=== PATIENT | female | born 1965 | race Two or more races ===

== ENCOUNTER → 2025-05-30 | Outpatient (CLI) | payer MEDICAID, SELFPAY ==
--- NOTE | 2025-05-30 14:45 | XR_ITS ---
Examination: Screening digital mammography, bilateral Computer aided detection 3-D breast Tomosynthesis, bilateral Date and time of exam: May 30, 2025, 1440 hours, comparison March 07, 2015 Indication: Screening Technique: Nonmagnified MLO, CC views of the breasts to been obtained, reconstructed from 3-D Tomosynthesis images. R2 computer aided detection program utilized for evaluation of suspicious masses and/or abnormal calcifications. 3-D Tomosynthesis images obtained. Findings: The breasts are heterogeneously dense, which may obscure small masses Benign calcifications. 8 mm nodule inner left breast 9.8 cm from the nipple Impression: BI-RADS Category 0: Incomplete: Need additional imaging evaluation Recommend follow-up spot tomographic views inner upper quadrant left breast to assess the 8 mm nodule inner left breast 9.8 cm from the nipple.
== END | disposition home or self-care (01) ==
PROVIDERS: PCP Nurse Practitioner Family; Referring Provider Nurse Practitioner Family; Visit Provider Nurse Practitioner Family
DX: Z12.31 Encounter for screening mammogram for malignant neoplasm of breast (principal); R92.8 Other abnormal and inconclusive findings on diagnostic imaging of breast; N63.22 Unspecified lump in the left breast, upper inner quadrant
CPT/HCPCS: 77063; 77067

== ENCOUNTER → 2025-07-30 | Outpatient (CLI) | payer MEDICAID, SELFPAY ==
--- NOTE | 2025-07-30 15:00 | XR_ITS ---
Examination: Diagnostic digital mammography, unilateral, left Computer aided detection 3-D breast Tomosynthesis, unilateral Date and time of exam: 07/30/2025, 3:04 p.m. Comparisons: February 2015, May 2025 Indications: Pain follow-up abnormality seen on prior screening exam. Technique: Nonmagnified MLO, CC views of the left breast have been obtained, reconstructed from 3-D Tomosynthesis images. R2 computer aided detection program utilized for evaluation of suspicious masses and/or abnormal calcifications. 3-D Tomosynthesis images obtained. Technologist: Findings: There are scattered areas of fibroglandular density. Subtle asymmetry persists in the upper inner quadrant on spot compression cc views. No other focal abnormality. Impression: Persistent asymmetry as above. Ultrasound evaluation recommended. BI-RADS category 0: Incomplete assessment; need additional imaging evaluation
== END | disposition home or self-care (01) ==
LOC: CDIM 14:42
PROVIDERS: Referring Provider Nurse Practitioner Family; Visit Provider Nurse Practitioner Family
DX: N64.89 Other specified disorders of breast (principal); R92.8 Other abnormal and inconclusive findings on diagnostic imaging of breast
CPT/HCPCS: 77061; 77065; G0279

== ENCOUNTER → 2025-08-15 | Outpatient (CLI) | payer MEDICAID, SELFPAY ==
--- NOTE | 2025-08-15 09:30 | XR_ITS ---
Examination: MRI brain without intravenous contrast. Date and time of exam: August 15, 2025, 1022 hours INDICATIONS: Left-sided facial pain radiating to the left side of the head dizziness weakness for months Technique: Multiple axial and sagittal images of the brain obtained. Siemens high-resolution 1.5 Rena short bore scanners utilized. Sagittal sections, T1-weighted, TR 500, TE 14, are performed. Axial sections proton-density and T2-weighted have been obtained. Inversion recovery axial images, TR 9, 260, TE 111, TI 2500. Diffusion weighted images, axial sections, TR 4800, TE 128, B value 1000 Axial sections, ADC map, TR 4800, TE 128 Findings: Enlargement of the sella turcica is not present. The optic chiasm and infundibular are not remarkable. Prepontine and interpeduncular cisterns are not enlarged. There is no localized enlargement of the medulla or froylan. Fourth ventricle and cerebellar tonsils appear normal in position. No subacute area of hemorrhage density is seen. Mass in the cerebellopontine angle region is not evident. Globes symmetrical. Orbital musculature including medial lateral rectus muscles do not exhibit abnormality. Diffusion-weighted images demonstrate no focus of restricted diffusion. Increased white matter signal very prominent Mass effect upon the ventricular system is not identified. Impression: Negative for acute hemorrhage mass effect or midline shift No acute infarct Very prominent multiple punctate foci increased signal in the white matter, differential would include demyelinating disease, accelerated chronic microvascular white matter change
== END | disposition home or self-care (01) ==
PROVIDERS: PCP Specialist; Referring Provider Nurse Practitioner Family; Visit Provider Nurse Practitioner Family
DX: R90.82 White matter disease, unspecified (principal)
CPT/HCPCS: 70551